=== PATIENT | female | born 1970 | race Caucasian/White ===

== ENCOUNTER 2020-10-24 17:52 | Emergency (ER) | payer OTHER ==
[~2020-10-24 17:52] MED LIST: FLEXERIL5 MG PO; IBU800 MG PO; MEDROL 4MG DOSEP4 MG PO; MOTRIN600 MG PO; NAPROXEN500 MG PO; TOPICORT60 G3 TOP
[2020-10-24] MEDS ORDERED: CLARITIN10 MG PO (19:12)
[2020-10-24] MEDS ORDERED: PREDNISONE 20MG20 MG PO (19:12)
[2020-10-24] MEDS ORDERED: TESSALON PERLE100 M1 PO (19:12)
== END 2020-10-24 19:45 | disposition home or self-care (01) ==
LOC: FER 17:52
DX: J44.1 Chronic obstructive pulmonary disease with (acute) exacerbation (principal); J30.2 Other seasonal allergic rhinitis; F17.200 Nicotine dependence, unspecified, uncomplicated; Z88.5 Allergy status to narcotic agent; Z91.030 Bee allergy status
CPT/HCPCS: 71045

== ENCOUNTER 2020-11-02 12:38 | Emergency (ER) | payer OTHER ==
[~2020-11-02 12:38] MED LIST changes: +CLARITIN10 MG PO; +PREDNISONE 20MG20 MG PO; +TESSALON PERLE100 M1 PO
[2020-11-02 14:23] LABS: BASOPHIL 0.3 % (0-2); EOSINOPHIL 2.3 % (0-5); HCT 47.5 % (37.0-47.0); HGB 16.5 g/dl (12.5-16.0); LYMPHOCYTE 26.8 % (15-48); MCHC 34.7 g/dL (32.0-36.0); MONOCYTE 6.8 % (0-12); NEUTROPHIL 62.9 % (41-80); NRBC 0; PLT 238 K/uL (150-400); RDW 12.7 % (11.5-14.0)
[2020-11-02 14:49] LABS: BUN/CREAT RATIO (CALC) 11.4 RATIO; CREATININE 1.05 mg/dL (0.51-0.95); POTASSIUM 4.2 mmol/L (3.5-5.1)
[2020-11-02 15:14] LABS: BILIRUBIN NEGATIVE (NEGATIVE); BLOOD NEGATIVE Ery/uL (NEGATIVE); CLARITY CLEAR (CLEAR); COLOR YELLOW (YELLOW); GLUCOSE (U) NORMAL (NORMAL); LEUKOCYTES NEGATIVE Leu/uL (NEGATIVE); NITRITE NEGATIVE (NEGATIVE); PROTEIN NEGATIVE (NEGATIVE); UROBILINOGEN 0.2 mg/dL (0.2-1.0)
[2020-11-02] MEDS ORDERED: IBUPROFEN800 MG PO (15:53)
[2020-11-02] MEDS ORDERED: PREDNISONE 20MG20 MG PO (15:53)
== END 2020-11-02 16:20 | disposition home or self-care (01) ==
LOC: FER 12:38
PROVIDERS: Nurse Practitioner Family
DX: J20.4 Acute bronchitis due to parainfluenza virus (principal); J44.0 Chronic obstructive pulmonary disease with (acute) lower respiratory infection; Z88.5 Allergy status to narcotic agent; Z87.891 Personal history of nicotine dependence; Z88.0 Allergy status to penicillin; Z88.8 Allergy status to other drugs, medicaments and biological substances
CPT/HCPCS: 36415; 71046; 80048; 81003; 85025; 94640; J1885; J2930; J7030

== ENCOUNTER 2021-01-28 23:00 | Emergency (ER) | payer OTHER ==
[~2021-01-28 23:00] MED LIST changes: +IBUPROFEN800 MG PO
[2021-01-28 23:52] LABS: BASOPHIL 0.3 % (0-2); EOSINOPHIL 0.1 % (0-5); HCT 44.2 % (37.0-47.0); HGB 14.8 g/dl (12.5-16.0); LYMPHOCYTE 25.4 % (15-48); MCHC 33.5 g/dL (32.0-36.0); MCV 95.7 fL (78.0-100.0); MONOCYTE 8.9 % (0-12); MPV 10.9 fL (6.0-9.5); NRBC 0; PLT 156 K/uL (150-400); RBC 4.62 M/uL (4.20-5.40); RDW 12.4 % (11.5-14.0); WBC 6.8 K/uL (4.0-10.5)
[2021-01-29 00:10] LABS: ALBUMIN 3.5 g/dL (3.4-5.0); BILIRUBIN - TOTAL 0.5 mg/dL (0.2-1.0); BUN/CREAT RATIO (CALC) 13.6 RATIO; CREATININE 1.03 mg/dL (0.51-0.95); GLOBULIN (CALCULATION) 3.2 g/dL; MAGNESIUM 1.9 mg/dL (1.8-2.4); POTASSIUM 3.7 mmol/L (3.5-5.1); TOTAL PROTEIN 6.7 g/dL (6.4-8.2)
[2021-01-29 00:11] LABS: INR 0.95 (0.9-1.2); PROTHROMBIN TIME 12.1 SECONDS (11.8-13.4); PTT 30.5 SECONDS (24.4-34.7)
[2021-01-29] MEDS ORDERED: ULTRAM50 MG PO (01:27)
== END 2021-01-29 01:42 | disposition home or self-care (01) ==
LOC: FER 23:00
PROVIDERS: Emergency Medicine
DX: R07.89 Other chest pain (principal); J44.9 Chronic obstructive pulmonary disease, unspecified; F17.210 Nicotine dependence, cigarettes, uncomplicated; Z88.5 Allergy status to narcotic agent
CPT/HCPCS: 36415; 71275; 80053; 83690; 83735; 84484; 85025; 85610; 85730; 93005; J1170; J2405

== ENCOUNTER 2021-01-31 15:14 | Emergency (ER) | payer OTHER ==
[~2021-01-31] VITALS: Ht 172.7 cm; Wt 81.6 kg
[~2021-01-31 15:14] MED LIST changes: +ULTRAM50 MG PO
[2021-01-31 16:35] LABS: BASOPHIL 0.2 % (0-2); EOSINOPHIL 0.7 % (0-5); HCT 43.6 % (37.0-47.0); LYMPHOCYTE 26.3 % (15-48); MCH 32.1 pg (25.0-31.0); MCHC 34.4 g/dL (32.0-36.0); MCV 93.4 fL (78.0-100.0); MONOCYTE 8.4 % (0-12); NEUTROPHIL 64.2 % (41-80); NRBC 0; PLT 150 K/uL (150-400); RBC 4.67 M/uL (4.20-5.40); RDW 11.9 % (11.5-14.0); WBC 4.5 K/uL (4.0-10.5)
[2021-01-31 16:59] LABS: BUN/CREAT RATIO (CALC) 12.5 RATIO; CREATININE 0.88 mg/dL (0.51-0.95); POTASSIUM 3.9 mmol/L (3.5-5.1)
[2021-01-31 17:09] LABS: INFLUENZA A NAA NEGATIVE (NEGATIVE)
[2021-01-31 17:17] LABS: CORONAVIRUS 2019 SARS-COV-2 POSITIVE (NEGATIVE)
[2021-01-31] MEDS ORDERED: NYSTATIN 30GM C30 GM TOP (19:35)
== END 2021-01-31 20:00 | disposition home or self-care (01) ==
LOC: FER 15:14
PROVIDERS: Nurse Practitioner Family
DX: U07.1 COVID-19 (principal); J44.9 Chronic obstructive pulmonary disease, unspecified; F17.210 Nicotine dependence, cigarettes, uncomplicated; Z88.5 Allergy status to narcotic agent; Z23 Encounter for immunization
CPT/HCPCS: 36415; 71046; 80048; 85025; J2405; M0245; Q0245; U0002

== ENCOUNTER 2021-02-03 00:07 | Emergency (ER) | payer OTHER ==
[~2021-02-03 00:07] MED LIST changes: +NYSTATIN 30GM C30 GM TOP
== END 2021-02-03 00:41 | disposition home or self-care (01) ==
LOC: FER 00:07
DX: K64.4 Residual hemorrhoidal skin tags (principal); J44.9 Chronic obstructive pulmonary disease, unspecified; I25.10 Atherosclerotic heart disease of native coronary artery without angina pectoris; F17.200 Nicotine dependence, unspecified, uncomplicated; Z88.5 Allergy status to narcotic agent
CPT/HCPCS: 99283

== ENCOUNTER 2021-04-30 17:08 | Emergency (ER) | payer OTHER | END 2021-04-30 18:01 | disposition home or self-care (01) | LOC: FER 17:08 | DX: B35.4 Tinea corporis (principal); I25.10 Atherosclerotic heart disease of native coronary artery without angina pectoris; F17.200 Nicotine dependence, unspecified, uncomplicated | CPT/HCPCS: 99282 ==

== ENCOUNTER 2021-11-11 12:04 | Emergency (ER) | payer OTHER ==
[2021-11-11 12:37] LABS: BASOPHIL 0.4 % (0-2); EOSINOPHIL 0.2 % (0-5); HCT 43.2 % (37.0-47.0); HGB 14.8 g/dl (12.5-16.0); LYMPHOCYTE 21.9 % (15-48); MCHC 34.3 g/dL (32.0-36.0); MCV 93.3 fL (78.0-100.0); MPV 11.1 fL (6.0-9.5); NEUTROPHIL 66.1 % (41-80); NRBC 0; PLT 154 K/uL (150-400); RBC 4.63 M/uL (4.20-5.40); RDW 12.6 % (11.5-14.0); WBC 5.4 K/uL (4.0-10.5)
[2021-11-11 13:13] LABS: CREATININE 1.04 mg/dL (0.51-0.95); POTASSIUM 3.7 mmol/L (3.5-5.1)
[2021-11-11] MEDS ORDERED: PAXLOVID 150-11 EACH PO (14:07)
== END 2021-11-11 14:48 | disposition home or self-care (01) ==
LOC: FER 12:04
PROVIDERS: Emergency Medicine
DX: U07.1 COVID-19 (principal); J44.9 Chronic obstructive pulmonary disease, unspecified; F17.200 Nicotine dependence, unspecified, uncomplicated; Z28.310 Unvaccinated for COVID-19
CPT/HCPCS: 36415; 71045; 80048; 85025; U0002